=== PATIENT | male | born 1945 | race Caucasian/White ===

== ENCOUNTER → 2017-09-11 | Outpatient (CLI) | payer BC, OTHER ==
[~2017-09-11] MED LIST: ASPI81TA28 PO; MULT-506 PO; OMEG10002 PO; SIMV40TA2 PO
== END | disposition home or self-care (01) ==
LOC: C.LABMFLN 08:09
PROVIDERS: ATTEND Family Medicine
DX: E78.5 Hyperlipidemia, unspecified (principal)

== ENCOUNTER → 2017-11-27 | Day surgery (SDC) | payer OTHER, BC ==
[2017-10-21 09:47] VITALS: Ht 167.6 cm; Wt 70.0 kg
[~2017-11-27] VITALS: Ht 167.6 cm; Wt 70.0 kg
[~2017-11-27] MED LIST changes: +500ML BSS 0.3ML EPI 1:1000PF IRRIG ONE; +ACETAMINOPHEN 325 MG TAB PO PRN; +AMVISC PLUS 0.8ML SYRINGE INT OCU ONE; +ATROPINE SULFATE 0.1 MG/ML 5ML SYR IV PRN; +AcetaZOLAMIDE 250 MG TAB PO SCH; +BETAXOLOL HCL 0.25% OP SUSP PER DROP CHARGE OPL SCH; +BRIMONIDINE TART 0.2% OP SOLN PER DROP CHARGE ONE; +BSS FLUSH ONE; +ENDOCOAT 0.85ML SYRINGE INT OCU ONE; +EpHEDrine SULFATE INJ 50 MG/ML AMP IV PRN; +EpINEphrine INJ 1MG/ML AMP 1 MG/ML AMP ONE; +FENTANYL CITRATE INJ 50 MCG/1 ML 2 ML VIAL IV PRN; +FLUMAZENIL 0.1 MG/1 ML 10 ML VIAL IV PRN; +HYDROmorphone INJ 2 MG/ML SYR/VIAL IV PRN; +LABETALOL HCL IV 5 MG/ML 20ML IV PRN; +LACTATED RINGER'S 1000ML 500 ML IV SCH; +LIDOCAINE 4% OP SOLN DROP CHARGE ONE; +LIDOCAINE 4% OP SOLN DROP CHARGE OPL SCH; +LIDOCAINE HCL 1% MPF 2 ML VIAL ONE; +MEPERIDINE HCL 25 MG/ML CARP IV PRN; +MIDAZOLAM HCL 1 MG/ML 2ML VIAL ONE; +MIX: 4ML BSS 1ML EPI 1:1000 PF INSTIL ONE; +MOXIFLOXACIN OPH SOLN PER DROP CHARGE ONE; +NALOXONE HCL 0.4 MG/1 ML VIAL/CARP IV PRN; +ONDANSETRON INJ 2 MG/ML 2 ML VIAL IV PRN; +PHENYLEPHRINE 100MCG/ML 5ML SYR IV PRN; +POVIDONE-IODINE OP SOLN 30 ML BTL ONE; +PROPARACAINE 0.5% OP SOLN PER DROP CHARGE OPL SCH; +TOBRAMYCIN/DEXAMETHASONE OPH OINT PER APPLN CHARGE ONE
--- NOTE | 2017-11-27 07:53 | History & Physical Bridge - [place] ---
H&P Re-Evaluation Bridge Note: I have examined the patient, reviewed the History & Physical and in the interval since the performance of the History & Physical I have noted the following changes of clinical significance: No changes noted
[2017-11-27] MEDS: PHENYLEPHRINE HCL 2.5% OP SOLN PER DROP CHARGE OPL SCH ×2 (09:24→09:33)
[2017-11-27] MEDS: TROPICAMIDE 1% OP SOLN PER DROP CHARGE OPL SCH ×2 (09:25→09:34)
[2017-11-27] MEDS: CYCLOPENTOLATE HCL 1% OP SOLN PER DROP CHARGE OPL SCH ×2 (09:26→09:35)
[2017-11-27] MEDS: MOXIFLOXACIN OPH SOLN PER DROP CHARGE OPL SCH ×2 (09:27→09:37)
--- NOTE | 2017-11-27 10:02 | [facility] Operative Report ---
Operative Report Date of Service Nov 27, 2017. Operative Report 1. PREOPERATIVE DIAGNOSIS: Senile nuclear cataract, left eye. 2. POSTOPERATIVE DIAGNOSIS: Senile nuclear cataract, left eye. 3. PROCEDURE: Phacoemulsification of left cataract with posterior chamber lens implant, type Bausch [employer] Lomb, model MX60, power +24.0 diopters. ANESTHESIA: Local standby. SURGEON: Dr. Matthew. COMPLICATIONS: None. OPERATING TIME: 10 minutes. 4. OPERATION AND FINDINGS: DESCRIPTION OF PROCEDURE: The left pupil was dilated. The anesthetic was administered using a topical technique. The left eye was prepped and draped. A speculum was placed. A clear corneal incision was formed. The chamber was filled with Amvisc Plus and Endocoat. Epinephrine solution was used. A paracentesis was placed. A capsulorrhexis was performed. The nucleus was hydrodissected. The lens was removed with phacoemulsification. Time was 2.33 seconds. The aspiration unit was used to remove the cortex. The capsule was filled with Amvisc Plus. The lens implant was folded and placed into the capsule. The incision was hydrated. The Amvisc was aspirated. The wound was secure. The chamber was deep. The pupil was round. Brimonidine, TobraDex ointment and Vigamox solution were placed. The speculum was removed. The patient was returned to the Recovery Room in stable condition. I attest to the content of the Intraoperative Record and any orders documented therein. Any exceptions are noted below. The scribe's documentation has been prepared in my presence, under my direction and personally reviewed by me in its entirety. I confirm that the note above accurately reflects all work, treatment, procedures, and medical decision making performed by me. I personally scribed for Philip Matthew M.D. ([email or web address]) on 11/27/17 at 10:02. Electronically submitted by Adriane Franco ([email or web address]).
--- NOTE | 2017-11-27 10:04 | Discharge Instructions-SurgCtr ---
Discharge Instructions Date of Service Nov 27, 2017. Visit Reason for Visit: Cataract Left Eye Discharge Discharge Diagnosis / Problem: lens implant left eye Discharge Goals Goal(s): Improve function Activity Recommendations Activity Limitations: resume your previous activity Lifting Limitations: no more than 10 pounds Exercise/Sports Limitations: gradually increase as tolerated May Resume Sexual Activity: when tolerated Shower/Bathe: tomorrow Driving or Machine Use: resume 1 day after discharge Anesthesia . Post Anesthesia Instructions: If you have had General Anesthesia or IV Sedation: * Do not drive today. * Resume driving when surgeon permits. * Do not make important decisions or sign legal documents today. * Call surgeon for: 1. Temperature elevations greater than 101 degrees F. 2. Uncontrollable pain. 3. Excessive bleeding. 4. Persistent nausea and vomiting. 5. Medication intolerance (nausea, vomiting or rash). * For nausea and vomiting use only clear liquids such as: tea, soda, bouillon until nausea subsides, then gradually increase diet as tolerated. * If you have any concerns or questions, call your surgeon's office. If physician is unavailable and it is an emergency, call 911 or go to the nearest emergency room. . Instructions / Follow-Up Instructions / Follow-Up ACTIVITY RECOMMENDATIONS: * Light activities. * Mild irritation and blurred vision are common for the first few days. * You may walk outside, read, watch television. * Redness around the white part of the eye is common. MEDICATIONS: Resume previous medications unless instructed otherwise by your surgeon. * Take white Diamox (Acetazolamide) tablet at 1 pm today. Start all eye drops at 1 pm today: * Eye drops (today and tomorrow): Prednisone - one drop in operative eye every 3 hours while awake Ofloxacin - one drop in operative eye every 3 hours while awake SPECIAL CARE INSTRUCTIONS: * Tape plastic shield over eye to sleep at night. Call your doctor at with any concerns or problems. FOLLOW UP VISIT: Follow-up with Dr Matthew at [facility] as scheduled. Diet Recommendations Home Diet: no limitations Procedures Procedures Performed: Left Cataract Phacoemulsification With Intraocular Lens Implant Pending Studies Studies pending at discharge: no Medical Emergencies . Who to Call and When: Medical Emergencies: If at any time you feel your situation is an emergency, please call 911 immediately. . Non-Emergent Contact Non-Emergency issues call your: Senior Account Clerk Call Non-Emergent contact if: your pain is not controlled [phone] . . "Provider Documentation" section prepared by Philip Matthew. .
[2017-11-27 10:06] VITALS: TEMP 36.3
[2017-11-27 10:35] VITALS: BP 115/67; PULSE 56; O2SAT 96
--- NOTE | 2017-11-27 10:35 | Anesthesia Progress Nt - [facility] ---
Anesthesia Post Op Note Date & Time Nov 27, 2017 at 10:35 Vital Signs Pain Intensity: 0 Vital Signs Past 12 Hours Date Time Temp Pulse Resp B/P (MAP) Pulse Ox O2 Delivery O2 Flow Rate FiO2 11/27/17 10:06 36.3 56 16 121/73 (89) 98 Room Air 11/27/17 08:59 36.7 66 16 112/70 (84) 93 Room Air Notes Mental Status: alert / awake / arousable, participated in evaluation Pt Amnestic to Procedure: Yes Nausea / Vomiting: adequately controlled Pain: adequately controlled Airway Patency, RR, SpO2: stable & adequate BP & HR: stable & adequate Hydration State: stable & adequate Anesthetic Complications: no major complications apparent
== END | disposition home or self-care (01) ==
LOC: X.SURG 08:52
PROVIDERS: ATTEND Specialist
DX: H25.12 Age-related nuclear cataract, left eye (principal)

== ENCOUNTER → 2017-12-04 | Day surgery (SDC) | payer BC, OTHER ==
[2017-12-02 13:38] VITALS: Ht 167.6 cm; Wt 70.0 kg
[~2017-12-04] VITALS: Ht 167.6 cm; Wt 70.0 kg
[~2017-12-04] MED LIST changes: -BETAXOLOL HCL 0.25% OP SUSP PER DROP CHARGE OPL SCH; +BETAXOLOL HCL 0.25% OP SUSP PER DROP CHARGE OPR SCH; -FENTANYL CITRATE INJ 50 MCG/1 ML 2 ML VIAL IV PRN; -FLUMAZENIL 0.1 MG/1 ML 10 ML VIAL IV PRN; -HYDROmorphone INJ 2 MG/ML SYR/VIAL IV PRN; -LABETALOL HCL IV 5 MG/ML 20ML IV PRN; -LIDOCAINE 4% OP SOLN DROP CHARGE OPL SCH; +LIDOCAINE 4% OP SOLN DROP CHARGE OPR SCH; -MEPERIDINE HCL 25 MG/ML CARP IV PRN; -NALOXONE HCL 0.4 MG/1 ML VIAL/CARP IV PRN; +OCUCOAT 1 ML SOLN IO ONE; -PHENYLEPHRINE 100MCG/ML 5ML SYR IV PRN; -PROPARACAINE 0.5% OP SOLN PER DROP CHARGE OPL SCH; +PROPARACAINE 0.5% OP SOLN PER DROP CHARGE OPR SCH
[2017-12-04] MEDS: PHENYLEPHRINE HCL 2.5% OP SOLN PER DROP CHARGE OPR SCH ×2 (09:13→09:18)
[2017-12-04] MEDS: TROPICAMIDE 1% OP SOLN PER DROP CHARGE OPR SCH ×2 (09:14→09:19)
[2017-12-04] MEDS: CYCLOPENTOLATE HCL 1% OP SOLN PER DROP CHARGE OPR SCH ×2 (09:15→09:20)
[2017-12-04] MEDS: MOXIFLOXACIN OPH SOLN PER DROP CHARGE OPR SCH ×2 (09:17→09:27)
--- NOTE | 2017-12-04 10:25 | [facility] Operative Report ---
Operative Report Date of Service Dec 04, 2017. Operative Report 1. PREOPERATIVE DIAGNOSIS: Senile nuclear cataract, right eye. 2. POSTOPERATIVE DIAGNOSIS: Senile nuclear cataract, right eye. 3. PROCEDURE: Phacoemulsification of right cataract with posterior chamber lens implant, type Bausch [employer] Lomb, model MX60, power +24 diopters. ANESTHESIA: Local standby. SURGEON: Dr. Matthew. COMPLICATIONS: None. OPERATING TIME: 10 minutes. 4. OPERATION AND FINDINGS: DESCRIPTION OF PROCEDURE: The right pupil was dilated. The anesthetic was administered using a topical technique. The right eye was prepped and draped. A speculum was placed. A clear corneal incision was formed. The chamber was filled with Amvisc Plus and Endocoat. Epinephrine solution was used. A paracentesis was placed. A capsulorrhexis was performed. The nucleus was hydrodissected. The lens was removed with phacoemulsification. Time was 2.31 seconds. The aspiration unit was used to remove the cortex. The capsule was filled with Amvisc Plus. The lens implant was folded and placed into the capsule. The incision was hydrated. The Amvisc was aspirated. The wound was secure. The chamber was deep. The pupil was round. Brimonidine, TobraDex ointment and Vigamox solution were placed. The speculum was removed. The patient was returned to the Recovery Room in stable condition. I attest to the content of the Intraoperative Record and any orders documented therein. Any exceptions are noted below. The scribe's documentation has been prepared in my presence, under my direction and personally reviewed by me in its entirety. I confirm that the note above accurately reflects all work, treatment, procedures, and medical decision making performed by me. I personally scribed for Philip Matthew M.D. ([email or web address]) on 12/04/17 at 10:25. Electronically submitted by Adriane Franco ([email or web address]).
--- NOTE | 2017-12-04 10:27 | Discharge Instructions-SurgCtr ---
Discharge Instructions Date of Service Dec 04, 2017. Visit Reason for Visit: Cataract Right Eye Discharge Discharge Diagnosis / Problem: lens implant right eye Discharge Goals Goal(s): Improve function Activity Recommendations Activity Limitations: resume your previous activity Lifting Limitations: no more than 10 pounds Exercise/Sports Limitations: gradually increase as tolerated May Resume Sexual Activity: when tolerated Shower/Bathe: tomorrow Driving or Machine Use: resume 1 day after discharge Anesthesia . Post Anesthesia Instructions: If you have had General Anesthesia or IV Sedation: * Do not drive today. * Resume driving when surgeon permits. * Do not make important decisions or sign legal documents today. * Call surgeon for: 1. Temperature elevations greater than 101 degrees F. 2. Uncontrollable pain. 3. Excessive bleeding. 4. Persistent nausea and vomiting. 5. Medication intolerance (nausea, vomiting or rash). * For nausea and vomiting use only clear liquids such as: tea, soda, bouillon until nausea subsides, then gradually increase diet as tolerated. * If you have any concerns or questions, call your surgeon's office. If physician is unavailable and it is an emergency, call 911 or go to the nearest emergency room. . Instructions / Follow-Up Instructions / Follow-Up ACTIVITY RECOMMENDATIONS: * Light activities. * Mild irritation and blurred vision are common for the first few days. * You may walk outside, read, watch television. * Redness around the white part of the eye is common. MEDICATIONS: Resume previous medications unless instructed otherwise by your surgeon. * Take white Diamox (Acetazolamide) tablet at 1 pm today. Start all eye drops at 1 pm today: * Eye drops (today and tomorrow): Prednisone - one drop in operative eye every 3 hours while awake Ofloxacin - one drop in operative eye every 3 hours while awake SPECIAL CARE INSTRUCTIONS: * Tape plastic shield over eye to sleep at night. Call your doctor at with any concerns or problems. FOLLOW UP VISIT: Follow-up with Dr Matthew at [facility] as scheduled. Diet Recommendations Home Diet: no limitations Procedures Procedures Performed: Right Cataract Phacoemulsification With Intraocular Lens Implant Pending Studies Studies pending at discharge: no Medical Emergencies . Who to Call and When: Medical Emergencies: If at any time you feel your situation is an emergency, please call 911 immediately. . Non-Emergent Contact Non-Emergency issues call your: Crust Sorter Call Non-Emergent contact if: your pain is not controlled [phone] . . "Provider Documentation" section prepared by Philip Matthew. .
[2017-12-04 10:29] VITALS: TEMP 36.3
[2017-12-04 10:47] VITALS: BP 111/66; PULSE 66; O2SAT 97
--- NOTE | 2017-12-04 10:53 | Anesthesia Progress Nt - [facility] ---
Anesthesia Post Op Note Date & Time Dec 04, 2017 at 10:53 Vital Signs Pain Intensity: 0 Vital Signs Past 12 Hours Date Time Temp Pulse Resp B/P (MAP) Pulse Ox O2 Delivery O2 Flow Rate FiO2 12/04/17 10:47 66 16 111/66 (81) 97 Room Air 12/04/17 10:29 36.3 57 16 137/82 (100) 98 Room Air 12/04/17 09:05 36.5 69 16 118/75 (89) 96 Room Air Notes Mental Status: alert / awake / arousable, participated in evaluation Pt Amnestic to Procedure: Yes Nausea / Vomiting: adequately controlled Pain: adequately controlled Airway Patency, RR, SpO2: stable & adequate BP & HR: stable & adequate Hydration State: stable & adequate Anesthetic Complications: no major complications apparent
== END | disposition home or self-care (01) ==
LOC: X.SURG 08:39
PROVIDERS: ATTEND Specialist
DX: H25.11 Age-related nuclear cataract, right eye (principal)

== ENCOUNTER 2025-05-04 08:46 | Observation (INO) ==
--- NOTE | 2025-04-23 12:41 | PAT Medication Instructions ---
Medication Instructions Date of Service April 23, 2025 Home Medications Medication Instructions Recorded CPAP Machine See Rx Instructions .Route 03/06/23 .COMPLEX #1 ea prednisone 10 mg tablet 10 mg PO DAILY #21 tabs 02/10/25 oxycodone 5 mg tablet 5 mg PO TID PRN pain (scale score 03/09/25 7-10) #30 tabs omega-3 acid ethyl esters 1 gram capsule 1 cap PO TID ibuprofen 200 mg tablet 800 mg PO DAILY PRN clobetasol 0.05 % topical cream 1 applic topical DAILY prednisone 10 mg tablet 10 mg PO DAILY oxycodone 5 mg tablet 5 mg PO TID PRN acetaminophen 500 mg tablet (Tylenol Extra Strength) 500 mg PO Q8H cholecalciferol (vitamin D3) 25 mcg (1,000 unit) capsule (Vitamin D3) 25 mcg PO DAILY cyanocobalamin (vitamin B-12) 500 mcg tablet 500 mcg PO DAILY duloxetine 30 mg capsule,delayed release 30 mg PO QAM simvastatin 40 mg tablet 40 mg PO HS Continue as directed prednisone 10 mg tablet 10 mg PO DAILY ASK your surgeon for instructions ibuprofen 200 mg tablet 800 mg PO DAILY PRN STOP taking 2 weeks before surgery (or as soon as possible if surgery is within 2 weeks) omega-3 acid ethyl esters 1 gram capsule 1 cap PO TID STOP taking 24 hours before surgery clobetasol 0.05 % topical cream 1 applic topical DAILY DO NOT take the morning of surgery cholecalciferol (vitamin D3) 25 mcg (1,000 unit) capsule (Vitamin D3) 25 mcg PO DAILY cyanocobalamin (vitamin B-12) 500 mcg tablet 500 mcg PO DAILY Take morning of surgery With a small sip of water, OTHERWISE NOTHING TO EAT OR DRINK AFTER MIDNIGHT: oxycodone 5 mg tablet 5 mg PO TID PRN(if needed) acetaminophen 500 mg tablet (Tylenol Extra Strength) 500 mg PO Q8H duloxetine 30 mg capsule,delayed release 30 mg PO QAM Take evening before surgery oxycodone 5 mg tablet 5 mg PO TID PRN(if needed) acetaminophen 500 mg tablet (Tylenol Extra Strength) 500 mg PO Q8H simvastatin 40 mg tablet 40 mg PO HS Other Notes If you have any questions please call us at [phone] or [phone] or [phone] or [phone]
--- NOTE | 2025-04-27 11:59 | Anesthesiology Consultation ---
Date of Service April 27, 2025 Assessment & Plan (1) Encounter for pre-operative examination: Chart Review Chart Review: Acceptable Risk for Surgery and Patient seen in Pre Admission Testing Pt currently scheduled as 23 hours observation. If surgeon decides to change patient to Same Day Joint, patient would be acceptable risk for TKA, pending patient is motivated, has good support and surgeon's office completes Same Day Joint Program preop requirements. Per PAT appt on 04/27/25, no recent illness/disease exposures, illness related symptoms, or recent illness/disease positive tests. Will leave to surgeon's discretion if preop Covid testing needed Teaching & Discussion Pre-Anesthesia Teaching/Discussion Notes: Instructed NPO after midnight before surgery,except medications with 15 cc of water. Medication instructions provided according to the PAT guidelines. History Surgery Operation Date: 05/04/25 10:40 Proposed Procedures p Left Total Knee Arthroplasty - Edu Denise MD Height/Weight Height: 5 ft 5 in Weight: 71.5 kg Allergies Allergy/AdvReac Type Severity Reaction Status Date / Time No Known Allergies Allergy Verified 04/23/25 13:22 Medications Home Medications Medication Instructions Recorded Confirmed Last Taken omega-3 acid ethyl esters 1 gram 1 cap PO TID 04/23/19 04/23/25 Unknown capsule CPAP Machine See Rx Instructions .Route 03/06/23 04/23/25 Unknown .COMPLEX #1 ea oxycodone 5 mg tablet 5 mg PO TID PRN pain (scale score 03/09/25 04/23/25 Unknown 7-10) #30 tabs acetaminophen 500 mg tablet 500 mg PO Q8H 04/23/25 04/23/25 Unknown (Tylenol Extra Strength) cholecalciferol (vitamin D3) 25 25 mcg PO DAILY 04/23/25 04/23/25 Unknown mcg (1,000 unit) capsule (Vitamin D3) cyanocobalamin (vitamin B-12) 500 500 mcg PO DAILY 04/23/25 04/23/25 Unknown mcg tablet duloxetine 30 mg capsule,delayed 30 mg PO QAM 04/23/25 04/23/25 Unknown release simvastatin 40 mg tablet 40 mg PO HS 04/23/25 04/23/25 Unknown Past Medical History Medical History Hyperlipidemia Lumbar radiculopathy Per 02/2025 lumbar MRI= Grade I anterolisthesis is seen at L4-L5 level. Mo derately advanced lumbar degenerative changes seen from L1-L2 to L5-S1 Osteoarthritis Sleep apnea cpap Exercise / Class Metabolic Activity II 4-5 Yardwork/Stairs/Walk up hill (one flight of stairs - no chest pain or SOB ) Past Family History Family History Father Coronary heart disease Myocardial infarction Denies family history of Ovarian cancer Prostate cancer Breast cancer Colorectal cancer Past Surgical History Surgical History Hx of hand surgery left hand sx, also left index finger re-attached S/P cataract extraction bilat S/P colonoscopy S/P inguinal hernia repair Past Anesthesia History No Hx of Anesthesia Complications and No Family Hx of Anesthesia Complications History of PONV No Hx of PONV and No Hx of Motion Sickness Social History Smoking Status: Former smoker Do You Dip or Chew Tobacco: No Smoking End Date: 1997 Hx Alcohol Use: Yes Alcohol type: beer, wine and hard liquor alcohol intake frequency: a few times a month Hx Substance Use: No substance use type: does not use Review of Systems - Occ cough in the morning - chronic and stable Patient denies chest pain, shortness of breath, dyspnea on exertion, reflux, wheezing, palpitations. No hx of seizures, stroke, VA. No hx of blood clots or blood transfusions Physical Exam Vital Signs VITALS BP 119/64 P 68 TEMP 97.5 SP02 94% RESP 16 Constitutional no acute distress ENMT Mouth: no TMJ clicking Thyromental Distance: > or= 3.5 Finger Breadths (3.5) Mallampati Class: III Full dentures on top and bottom Neck neck extension not limited Respiratory normal respiratory effort; no respiratory distress Auscultation: lungs clear to auscultation bilaterally; no wheezes Cardiovascular Rate/Rhythm: regular rate and regular rhythm Heart Sounds: no murmur Vessels: no carotid bruit Musculoskeletal Spine: no pain with cervical ROM Extremities: extremities normal to inspection Psychiatric Orientation: alert Lab Results Anesthesia Preop Results Results Anesthesia Widget: WBC 9.07 K/ul (4.8-10.8) 04/27/25 Hgb 12.2 g/dl (14.0-18.0) L 04/27/25 Hct 36.1 % (42.0-52.0) L 04/27/25 Plt 319 K/uL (130-400) 04/27/25 Na 142 mmol/L (136-145) 04/27/25 K 4.4 mmol/L (3.5-5.1) 04/27/25 Cl 106 mmol/L (98-107) 04/27/25 CO2 28 mmol/L (21-32) 04/27/25 BUN 21 mg/dl (6-23) 04/27/25 Creat 1.09 mg/dl (0.6-1.4) 04/27/25 Glucose Level 88 mg/dl (70-99(Fasting)) 04/27/25 PT 10.1 Seconds (9.0-12.0) 04/27/25 PTT 27 Seconds (21-31) 04/27/25 INR 0.9 (0.9-1.1) 04/27/25 Blood Type B Positive 04/27/25 Antibody Screen NEGATIVE 04/27/25 Testing Electrocardiogram Date: 04/27/25 Findings: + NSR @ (64bpm) Normal EKG per cardio Chest X-Ray Date: 04/27/25 Findings: + NAD Echocardiogram Date: 05/15/22 EF: 65-70% LV Function: normal Other Findings: + LVH (mild/concentric ) and + diastolic dysfunction (Class I ) Valvular Disease: + no significant valvular disease Normal chamber dimensions
[~2025-05-04 08:46] MED LIST changes: -500ML BSS 0.3ML EPI 1:1000PF IRRIG ONE; -ACETAMINOPHEN 325 MG TAB PO PRN; -AMVISC PLUS 0.8ML SYRINGE INT OCU ONE; -ASPI81TA28 PO; -ATROPINE SULFATE 0.1 MG/ML 5ML SYR IV PRN; -AcetaZOLAMIDE 250 MG TAB PO SCH; -BETAXOLOL HCL 0.25% OP SUSP PER DROP CHARGE OPR SCH; -BRIMONIDINE TART 0.2% OP SOLN PER DROP CHARGE ONE; -BSS FLUSH ONE; +BUPIVACAINE 0.5 % 5 MG/1 ML PF 10ML VIAL ONE; -ENDOCOAT 0.85ML SYRINGE INT OCU ONE; -EpHEDrine SULFATE INJ 50 MG/ML AMP IV PRN; -EpINEphrine INJ 1MG/ML AMP 1 MG/ML AMP ONE; -LACTATED RINGER'S 1000ML 500 ML IV SCH; -LIDOCAINE 4% OP SOLN DROP CHARGE ONE; -LIDOCAINE 4% OP SOLN DROP CHARGE OPR SCH; -LIDOCAINE HCL 1% MPF 2 ML VIAL ONE; -MIDAZOLAM HCL 1 MG/ML 2ML VIAL ONE; -MIX: 4ML BSS 1ML EPI 1:1000 PF INSTIL ONE; -MOXIFLOXACIN OPH SOLN PER DROP CHARGE ONE; -MULT-506 PO; -OCUCOAT 1 ML SOLN IO ONE; -OMEG10002 PO; -ONDANSETRON INJ 2 MG/ML 2 ML VIAL IV PRN; -POVIDONE-IODINE OP SOLN 30 ML BTL ONE; -PROPARACAINE 0.5% OP SOLN PER DROP CHARGE OPR SCH; +ROPIVACAINE 0.5% 5 MG/ML 30 ML VIAL ONE; -SIMV40TA2 PO; -TOBRAMYCIN/DEXAMETHASONE OPH OINT PER APPLN CHARGE ONE
--- NOTE | 2025-05-04 08:54 | History & Physical Bridge Note ---
Date of Service May 04, 2025 History & Physical Bridge Note I have examined the patient, reviewed the History & Physical and in the interval since the performance of the History & Physical I have noted the following changes of clinical significance: no changes noted
[2025-05-04] MEDS: LR 500ML BOLUS, THEN 15ML/HR IV SCH (09:07)
[2025-05-04] MEDS ORDERED: HYDROmorphone INJ 2 MG/ML SYR/VIAL IV PRN (09:27)
[2025-05-04] MEDS ORDERED: ATROPINE SULFATE 0.1 MG/ML 10ML SYR IV PRN (09:27)
[2025-05-04] MEDS ORDERED: ONDANSETRON INJ 2 MG/ML 2 ML VIAL IV PRN ×2 (09:27→14:30)
[2025-05-04] MEDS ORDERED: HYDROmorphone INJ 1 MG/ML SYRINGE IV PRN (09:27)
[2025-05-04] MEDS ORDERED: PROPOFOL IV EMULSION 10 MG/ML 20 ML VIAL IV ONE ×2 (09:40→12:50)
[2025-05-04] MEDS ORDERED: ONDANSETRON INJ 2 MG/ML 2 ML VIAL ONE (09:40)
[2025-05-04] MEDS ORDERED: MIDAZOLAM HCL 1 MG/ML 2ML VIAL ONE (09:40)
[2025-05-04] MEDS: LR 60ML/HR IV SCH (09:41)
[2025-05-04] MEDS: CeleBREX 200 MG CAP PO SCH (09:42)
[2025-05-04] MEDS: FAMOTIDINE 20 MG TAB PO SCH (09:42)
[2025-05-04] MEDS: ACETAMINOPHEN 500 MG TAB PO SCH ×2 (09:42→14:53)
[2025-05-04] MEDS: METOCLOPRAMIDE HCL 10 MG TABLET PO SCH (09:42)
[2025-05-04] MEDS: dexAMETHasone**PF** 10 MG/ML VIAL IV SCH (09:44)
[2025-05-04] MEDS: ORTHO JOINT ANESTHETIC ONE (12:17)
[2025-05-04] MEDS: ROPIV 0.5% 246mg, Ketorolac 30mg, EPINEPHrine 0.5mg in NSS INFIL SCH (12:27)
[2025-05-04] MEDS ORDERED: PHENYLEPHRINE HCL 10 MG/ML VIAL ONE (13:01)
[2025-05-04] MEDS ORDERED: PHENYLEPHRINE 100MCG/ML 5ML SYR ONE (13:28)
--- NOTE | 2025-05-04 13:45 | Operative Report ---
[facility] Post Operative Report Pre & Post Diagnosis Operation Date: 05/04/25 10:40 Pre-Op Diagnosis: Left Knee Osteoarthritis Post-Op Diagnosis: Left Knee Osteoarthritis I identified the patient and participated in the time-out.: Yes Procedure Operation Date: 05/04/25 10:40 Actual Procedures p Left Total Knee Arthroplasty(Left) - Edu Denise MD Surgeon Edu Denise MD [employer] Jose R Young PA-C Estimated Blood Loss 50 Findings Consistent with Post-Op Diagnosis Specimens Left knee sent for pathology. Anesthesia Type Spinal MAC Complications none Disposition Accompanied Patient To Recovery: No Indications Patient is an 79-year-old fairly active gentleman has a long history of bilateral knee pain discomfort left side bit worse than the right. Been through extensive conservative treatment which became less successful over time. X-rays show advanced bilateral knee arthritis. He elected proceed with left total knee arthroplasty. Description of Procedure Operative implants consist of: 1. Biomet Vanguard size 62.5 left posterior stabilized femoral component. 2. Biomet size 79 tibial tray. 3. 10 mm posterior stabilized polyethylene insert. 4. 34 x 8 and half all poly patella. The patient was taken to the op room, identified, placed on the operating table in the supine position. All contact areas were appropriately padded. IV antibiotics arrived by anesthesia team. A spinal anesthetic and adductor canal block had been provided in holding area. Left thigh tourniquet was then placed. Left lower extremity was then prepped and draped in usual sterile fashion. The left leg was elevated exsanguinated with use of an Esmarch and a tourniquet was placed at 300 mmHg. An anterior approach of the left knee was then performed through a longitudinal incision centered over the patella. Sharp dissection was Through subcutaneous tissue down the extensor mechanism. A medial parapatellar arthrotomy incision was made. Some subperiosteal dissection was carried out medially. It is a pretty extensive medial and posterior medial release due to his varus deformity. The fat pad was resected from Neath patella tendon. Lateral patellofemoral ligament was released. Patella subluxated laterally knee was flexed. The osteophytes were taken off distal femur. ACL and PCL were then released from the distal femur and the tibia subluxated anteriorly. The external tibial LYMErix then placed on the anterior face of the tibia and adjusted 14 mm medially. The proximal tibial cut was made essentially flush with the most deficient aspect the medial tibial plateau. Some osteophytes taken off medially. Tibia sized to a size 79. Attention drawn the femur. The distal femur send with a sharp drill bit intramedullary canal was suction. A left 6 degree valgus cutting guide was placed. Distal femoral cutting block was pinned in place. The distal femoral cut was made to take an additional 3 mm of bone off distal femur. The femur was then sized to a size 62.5. The 8 cutting block was pinned parallel to the epicondylar axis which was 5 degrees of external rotation. The anterior cut, anterior chamfer, posterior cut, posterior chamfer cuts were made. The box cutting guide was placed and just slight lateral and the box cut was made. The knee was flexed. The remnants of the medial and lateral menisci were excised. The osteophytes were taken off the p osterior aspect the femur. A trial femoral component was placed. The tibial tray was pinned in Ruby external rotation and the drill and stem punch used to create defect from proximal tibia for the tibial tray. Knee was then trialed and the 10 mm insert fit most appropriately. Attention drawn the patella. The patella was cleaned of all soft tissues. Patella thickness measured 25 mm in thickness was cut down to 15. Was sized to a size 34 patella. The lug holes were drilled for 34 patella. The lateral osteophyte was removed. Patella button was placed. Knee was taken through a range of motion and the patella tracked nicely with no thumbs test. Attention drawn to place the permanent components. NuPrep all trial components were removed. Bone plug was placed into the distal femur limit blood loss. A double batch of Palacos G cement was mixed. A Biomet Vanguard size 62.5 left posterior by femoral component, size 79 tibial tray, a 10 mm posterior stabilized polyethylene insert, and a 34 x 8 and half all poly patella then cemented in place. The knee was brought out into full extension till cement hardened. Final cement check was then performed. The pericapsular tissues were injected with total 100 cc of Ortho mix. Patient did receive 1 g tranexamic acid. The tourniquet was then let down for final tourniquet time of 58 minutes. Hemostasis assured use electrocautery. Extensor [place] closed with combination 1 PDS suture normal Vicryl suture in a [id number] fashion. Extensor [place] checked found to be intact. Subcutaneous tissue then closed with 2 Dexon suture in a buried interrupted fashion skin was closed skin felipe. Leg was then cleaned and dried and a sterile dressing with Xeroform, 4 fours, sterile cast padding, Calvin bandage were applied. Patient then transferred to the recovery in stable condition. Patient tolerated procedure well and there were no complications. Jose R Young, my physician insurance administrative assistant, was present for the entire procedure. His assistance was required for proper patient positioning, prepping and draping, surgical exposure, retraction, perform the technical details of the operation, placement implants, closure of the incision site, and placement of postoperative sterile bandage. I attest to the content of the Intraoperative Record and any orders documented therein. Any exceptions are noted below.
--- NOTE | 2025-05-04 13:53 | Anesthesiology Progress Note ---
Date of Service May 04, 2025 Anesthesia Post Procedure Vital Signs Vital Signs: Temp Pulse Pulse Resp BP Pulse Ox O2 Del Method 05/04/25 13:45 89 12 130/57 L 100 Oxymask 05/04/25 13:35 88 16 123/63 100 Oxymask 05/04/25 13:25 36.4 C L 97 H 12 117/53 L 97 Oxymask 05/04/25 09:18 36.5 C 67 20 151/68 H 97 Room Air O2 Flow Rate 05/04/25 13:45 4 05/04/25 13:35 4 05/04/25 13:25 6 05/04/25 09:18 Pain Intensity Left Knee: Pain Intensity: 7 Transfer of Care Handoff Completed per policy Notes Mental Status: alert / awake / arousable Patient Amnestic to Procedure: Yes Nausea / Vomiting: adequately controlled Pain: adequately controlled Airway Patency, RR, SpO2: stable & adequate BP & HR: stable & adequate Hydration State: stable & adequate Anesthetic Complications: no major complications apparent and Pt Satisfied with anesthetic care
--- NOTE | 2025-05-04 14:03 | XRay Report ---
TWO VIEWS LEFT KNEE CLINICAL HISTORY: Postoperative examination. FINDINGS: AP and crosstable lateral portable views of the left knee are obtained. A left knee arthrop lasty is in near anatomic alignment. There has been undersurface remodeling of the patella. No acute fracture is seen. There are expected postoperative changes around the knee including skin clips, a vergara rgical drain, soft tissue edema, and subcutaneous gas. IMPRESSION: Expected postoperative changes status post left knee arthroplasty. No acute fracture is s een. ACT 112: Negative or not required by law. Electronically signed by: Honorio Sanderson M.D. 05/04/2025 2:02 PM
[2025-05-04] MEDS ORDERED: NON-FORMULARY MEDICATION (Cpap Machine misc) SCH (14:30)
[2025-05-04] MEDS ORDERED: NALOXONE HCL 0.4 MG/1 ML VIAL/CARP IV PRN (14:30)
[2025-05-04] MEDS ORDERED: METOCLOPRAMIDE HCL INJ 5 MG/ML 2 ML VIAL IV PRN (14:30)
[2025-05-04] MEDS ORDERED: MAGNESIUM HYDROXIDE SUSP 30 ML UDC PO PRN (14:30)
[2025-05-04] MEDS ORDERED: ALUMINUM/MAGNESIUM SUSP 30 ML UDC PO PRN (14:30)
[2025-05-04] MEDS: SODIUM CHLORIDE 0.9% 1,000 ML IV SCH (14:52)
[2025-05-04] MEDS: KETOROLAC TROMETHAMINE 15 MG/ML VIAL IV SCH (14:54)
[2025-05-04] MEDS: ASCORBIC ACID 500 MG TAB PO SCH (15:25)
[2025-05-04] MEDS: OMEGA-3 (PURIFIED FISH OIL) 1 GM CAP PO SCH (15:25)
[2025-05-04] MEDS: HYDROmorphone INJ 0.5 MG/0.5 ML SYR IV PRN (19:11)
[2025-05-04] MEDS: ASPIRIN 81 MG ECTAB PO SCH (20:48)
[2025-05-04] MEDS: SIMVASTATIN 40 MG TAB PO SCH (20:49)
[2025-05-04] MEDS: DOCUSATE SODIUM 100 MG CAP PO SCH (20:49)
[2025-05-04] MEDS: SENNA 8.6 MG TAB PO SCH (20:49)
[2025-05-04] MEDS: TRANEXAMIC ACID / 0.7% NACL 1,000 MG/100 ML BAG IV SCH (21:00)
[2025-05-04] MEDS ORDERED: SENNA 8.6 MG TAB PO SCH (21:00)
[2025-05-05 02:59] VITALS: O2SAT 96
[2025-05-05 06:10] LABS: Hematocrit (blood only) 30.4 % (42.0-52.0); Hemoglobin 9.9 g/dl (14.0-18.0); Mean Corpuscular Hemoglobin 31.4 pg (25.0-34.0); Mean Corpuscular Volume 96.5 fL (80.0-100.0); Platelet Count 263 K/uL (130-400); RDW Standard Deviation 49.0 fL (36.4-46.3); Red Blood Count 3.15 M/uL (4.70-6.10); White Blood Count 19.48 K/ul (4.8-10.8)
[2025-05-05 06:24] LABS: Anion Gap 5.0 (3-11); Blood Urea Nitrogen 25.0 mg/dl (6-23); Calcium 8.6 mg/dl (8.6-10.3); Carbon Dioxide 27.0 mmol/L (21-32); Chloride 108.0 mmol/L (98-107); Creatinine Clr Calc Pharmacy 34.3 ml/min; Glucose 128.0 mg/dl (70-99(Fasting)); Potassium 5.5 mmol/L (3.5-5.1); Sodium 140.0 mmol/L (136-145)
[2025-05-05] MEDS: MULTIVITAMIN TAB PO SCH (08:03)
[2025-05-05] MEDS: TAMSULOSIN HCL 0.4 MG CAP PO SCH (08:03)
[2025-05-05] MEDS: CHOLECALCIFEROL 25 MCG (1000 UNITS) TAB PO SCH (08:04)
[2025-05-05] MEDS: CYANOCOBALAMIN (B-12) 500 MCG TABLET PO SCH (08:04)
[2025-05-05 08:06] VITALS: BP 115/51; PULSE 67; RESP 18; TEMP 97.5
[2025-05-05] MEDS: dexAMETHasone 10 MG in SYRINGE 0 ML IV SCH (08:13)
--- NOTE | 2025-05-05 09:20 | Orthopedic Progress Note ---
Date of Service May 05, 2025 Assessment & Plan (1) Status post total left knee replacement: Plan for physical therapy and occupational to evaluate patient Pain control Continue ASA for DVT prophylaxis Expected discharge later today after therapy evaluation. Subjective . Pt is s/p L TKA 05/04/[address] Denise. Pt is doing well this morning stating he was up and ambulated around the nurses station several times last evening. Pt notes he really does not have any pain in his knee only some tight feeling above his knee cap. Review of Systems All systems reviewed & are unremarkable except as noted in HPI & below. Physical Exam .VITALS: Reviewed. WEIGHT/BMI reviewed. GEN: Healthy appearing, well-developed, NAD. PSYCH: Good Judgment. AOx3. Normal memory, mood, and affect. NECK: Supple. SKIN: Warm, well perfused. No skin rashes or abnormal lesions. MSK: Left knee with intact surgical dressing clean, dry and in place. Pt is able to flex to 90 and can fully extend. Calves soft, non-tender. EXT: No clubbing, cyanosis, or edema. Good distal pulses. NEURO: Ambulating with no limitations. Normal muscle strength and tone. No focal deficits. Results & Data Results & Data Laboratory Results . Laboratory Results - last 24 hr 05/05/25 05:28 WBC 19.48 H RBC 3.15 L Hgb 9.9 L Hct 30.4 L MCV 96.5 MCH 31.4 MCHC 32.6 RDW Std Deviation 49.0 H RDW Coeff of Linda 13.8 Plt Count 263 MPV 10.2 Sodium 140 Potassium 5.5 H Chloride 108 H Carbon Dioxide 27 Anion Gap 5 BUN 25 H Creatinine 1.47 H Est Cr Clr Drug Dosing 34.3 eGFR 47.62 BUN/Creatinine Ratio 17.0 Glucose 128 H Calcium 8.6 Diagnostic Findings . Knee X-Ray 05/04/25 13:39 TWO VIEWS LEFT KNEE CLINICAL HISTORY: Postoperative examination. FINDINGS: AP and crosstable lateral portable views of the left knee are obtained. A left knee arthroplasty is in near anatomic alignment. There has been undersurface remodeling of the patella. No acute fracture is seen. There are expected postoperative changes around the knee including skin clips, a surgical drain, soft tissue edema, and subcutaneous gas. IMPRESSION: Expected postoperative changes status post left knee arthroplasty. No acute fracture is seen. ACT 112: Negative or not required by law. Electronically signed by: Honorio Sanderson M.D. 05/04/2025 2:02 PM PG Care Time/CCT Total # of Minutes Spent Total Time Spent with Patient: Total time spent is greater than 50% in coordination of care (as documented) at patient's floor/unit and/or counseling patient: Coding Level of Care Code 06466 Post Operative Follow-Up Diagnoses Status post total left knee replacement Z96.652
== END 2025-05-05 11:54 | disposition home health service (06) ==
LOC: 3E 08:46 → ASU 08:46